=== PATIENT | female | born 1960 | race African-American/Black ===

== ENCOUNTER 2021-11-16 07:50 | Emergency (ER) | payer OTHER, SELFPAY ==
[2021-11-16 08:14] LABS: Hematocrit 37.5 % (36.0-45.0); Lymphocytes % 24.7 % (15.3-44.8); MPV 9.1 fL (7.6-11.3); RBC Red Blood Cell Count 4.11 M/uL (3.86-4.86)
[2021-11-16 08:40] LABS: Albumin 3.5 g/dL (3.4-5.0); Bilirubin Direct 0.1 mg/dL (0-0.2); Bilirubin Total 0.4 mg/dL (0.2-1.0); Magnesium 1.9 mg/dL (1.8-2.4); Potassium 3.9 mmol/L (3.5-5.1); Troponin High Sensitivity 7.5 pg/mL (<58.9)
--- NOTE | 2021-11-16 09:32 | RAD REPORT ---
EXAM DESCRIPTION: RAD - Chest Single View - 11/16/2021 8:34 am CLINICAL HISTORY: CHEST PAIN Chest pain. COMPARISON: No comparisons FINDINGS: Portable technique limits examination quality. The lungs are grossly clear. The heart is upper limit normal in size. No displaced fractures.Multi le ad pacer/defibrillator device is present. IMPRESSION: No acute intrathoracic process suspected.
[2021-11-16] MEDS ORDERED: ACETAMINOPHEN 500 MG TAB ONE (10:07)
--- NOTE | 2021-11-16 10:09 | ER ---
Nurse's Notes [facility] Name: Antonietta Sena Age: 61 yrs Sex: Female : 1960 Arrival Date: 11/16/2021 Time: 07:55 Bed 5 Private MD: Diagnosis: Chest pain, unspecified;Hypertension, History of CVA, History of CAD Presentation: 11/16 08:10 Chief complaint: Patient states: Palpitations and chest pressure awoke her out of sleep ll1 this morning. EMS states: VSS. Aspirin 324 mg PO, 2 nitro sprays, and zofran 4mg IV given en route. Coronavirus screen: Vaccine status: Patient reports receiving the 2nd dose of the covid vaccine. Client denies travel out of the [place] in the last 14 days. At this time, the client does not indicate any symptoms associated with coronavirus-19. Ebola Screen: Patient denies travel to an Ebola-affected area in the 21 days before illness onset. Initial Sepsis Screen: Does the patient meet any 2 criteria? No. Patient's initial sepsis screen is negative. Does the patient have a suspected source of infection? No. Patient's initial sepsis screen is negative. Risk Assessment: Do you want to hurt yourself or someone else? Patient reports no desire to harm self or others. Onset of symptoms was November 16, 2021. 08:10 Method Of Arrival: EMS: [facility] ll1 08:10 Acuity: DESTINY 3 ll1 Triage Assessment: 08:12 General: Appears in no apparent distress. Behavior is calm, cooperative, appropriate ll1 for age. Pain: Complains of pain in chest Quality of pain is described as pressure. Neuro: No deficits noted. Cardiovascular: Reports chest pain, palpitations, Heart tones S1 S2 Capillary refill < 3 seconds JVD Patient's skin is warm and dry. Rhythm is regular. Respiratory: No deficits noted. GI: Abdomen is round Reports nausea. Historical: - Allergies: 08:09 PENICILLINS; ll1 - PMHx: 08:09 Hypertensive disorder; Congestive heart failure; stroke; ll1 - PSHx: 08:09 pacemaker/defib; ll1 - Immunization history:: Client reports receiving the 2nd dose of the Covid vaccine. - Social history:: Smoking status: Patient denies any tobacco usage or history of. Screenin:40 Abuse screen: Denies threats or abuse. Nutritional screening: No deficits noted. ll1 Tuberculosis screening: No symptoms or risk factors identified. Fall Risk IV access (20 points). Total Fu Fall Scale indicates No Risk (0-24 pts). Assessment: 09:10 Reassessment: No changes from previously documented assessment. Patient and/or family ll1 updated on plan of care and expected duration. Pain level reassessed. Patient is alert, oriented x 3, equal unlabored respirations, skin warm/dry/pink. 09:55 Reassessment: No changes from previously documented assessment. Patient and/or family ll1 updated on plan of care and expected duration. Pain level reassessed. Patient is alert, oriented x 3, equal unlabored respirations, skin warm/dry/pink. states she will be admitted. Dr. Jj informed. Vital Signs: 08:10 BP 140 / 71; Pulse 66; Resp 17; Temp 98.1; Pulse Ox 97% on R/A; Weight 117.93 kg; ll1 Height 6 ft. 0 in. (182.88 cm); Pain 5/10; 08:41 BP 128 / 75; Pulse 63; Resp 16; Pulse Ox 97% on R/A; ll1 09:54 BP 145 / 76; Pulse 66; Resp 16; Pulse Ox 100% on R/A; ll1 08:10 Body Mass Index 35.26 (117.93 kg, 182.88 cm) ll1 ED Course: 07:55 Patient arrived in ED. eb 07:55 Armando Jj DO is Attending Physician. eb 07:59 Norma Carmichael, RN is Primary Nurse. ll1 08:09 Arm band placed on. ll1 08:12 Triage completed. ll1 08:13 Maintain EMS IV. Dressing intact. Good blood return noted. Site clean \T\ dry. Gauge \T\ ll 1 site: 20 G L FA. Patient maintains SpO2 saturation greater than 95% on room air. 08:34 XRAY Chest (1 view) In Process Unspecified. EDMS 08:40 Patient has correct armband on for positive identification. Bed in low position. Call ll1 light in reach. Side rails up X 1. pvc monitor on. Pulse ox on. NIBP on. 10:07 Tiburcio Dimas MD is Hospitalizing Provider. ms3 10:43 No provider procedures requiring assistance completed. colin 10:43 IV discontinued, intact, Pressure dressing applied. colin Administered Medications: 10:02 Not Given (given PTAa): Aspirin 325 mg PO once ph 10:08 Drug: Tylenol 1000 mg Route: PO; ll1 10:32 Follow up: Response: No adverse reaction ll1 Outcome: 10:09 Decision to Hospitalize by Provider. ms3 10:34 Discharge ordered by MD. ms3 10:43 Discharged to home colin 10:43 Discharged to home with family. 10:43 Condition: good 10:43 Discharge instructions given to patient, family. 10:43 Patient left the ED. colin Signatures: Dispatcher [employer] EDMS Lida Mike Lynsay, RN RN [facility] Armando Jj DO DO ms3 Haritha Orozco RN RN Silvia Cardoso RN
--- NOTE | 2021-11-16 10:10 | EDPHYS ---
Physician Documentation [facility] Name: Antonietta Sena Age: 61 yrs Sex: Female : 1960 Arrival Date: 11/16/2021 Time: 07:55 Bed 5 Private MD: ED Physician Armando Jj HPI: 11/16 07:58 This 61 yrs old Black Female presents to ER via Unassigned with complaints of chest ms3 pain. 07:58 The patient or guardian reports chest pain that is located primarily in the substernal ms3 area. Onset: 4 hour(s) ago. The pain does not radiate. Associated signs and symptoms: Pertinent positives: nausea, Pertinent negatives: cough, diaphoresis, dizziness, headache, vomiting. The chest pain is described as tightness. Modifying factors: The symptoms are alleviated by NTG, X2. the symptoms are aggravated by nothing. 08:07 61-year-old female with past medical history of congestive heart failure, CVA, ms3 hypertension presents via EMS for chest tightness that began at 4 AM. Patient states she is having moderate chest tightness. Patient states pain became better after 2 sublingual nitroglycerin. Patient denies alleviating factors. Patient endorses diarrhea and nausea. Patient denies shortness of breath, diaphoresis. Historical: - Allergies: 08:09 PENICILLINS; ll1 - PMHx: 08:09 Hypertensive disorder; Congestive heart failure; stroke; ll1 - PSHx: 08:09 pacemaker/defib; ll1 - Immunization history:: Client reports receiving the 2nd dose of the Covid vaccine. - Social history:: Smoking status: Patient denies any tobacco usage or history of. ROS: 08:07 Constitutional: Negative for fever, and chills. Eyes: Negative for injury, pain, ms3 redness, and discharge, ENT: Negative for injury, pain, and discharge, Neck: Negative for injury, pain, and swelling, Respiratory: Negative for shortness of breath, cough, wheezing, and pleuritic chest pain. 08:07 Skin: Negative for injury, rash, and discoloration, Neuro: Negative for headache, weakness, numbness, tingling. Psych: Negative for depression, anxiety, suicide ideation, homicidal ideation, and hallucinations. 08:07 Abdomen/GI: Positive for nausea. Exam: 08:09 Constitutional: This is a well developed, well nourished patient who is awake, alert, ms3 and in no acute distress. Head/Face: Normocephalic, atraumatic. Eyes: Pupils equal round and reactive to light, extra-ocular motions intact. Lids and lashes normal. Conjunctiva and sclera are non-icteric and not injected. Cornea within normal limits. Periorbital areas with no swelling, redness, or edema. Neck: Trachea midline, no cervical lymphadenopathy. Supple, full range of motion without nuchal rigidity, or vertebral point tenderness. No Meningismus. Chest/axilla: Normal chest wall appearance and motion. Nontender with no deformity. Cardiovascular: Regular rate and rhythm with a normal S1 and S2. No gallops, murmurs, or rubs. Normal PMI, no JVD. No pulse deficits. Respiratory: Lungs have equal breath sounds bilaterally, clear to auscultation and percussion. No rales, rhonchi or wheezes noted. No increased work of breathing, no retractions or nasal flaring. Abdomen/GI: Soft, non-tender, with normal bowel sounds. No distension or tympany. No guarding or rebound. No evidence of tenderness throughout. 08:12 ECG was reviewed by the Attending Physician. ms3 Vital Signs: 08:10 BP 140 / 71; Pulse 66; Resp 17; Temp 98.1; Pulse Ox 97% on R/A; Weight 117.93 kg; ll1 Height 6 ft. 0 in. (182.88 cm); Pain 5/10; 08:41 BP 128 / 75; Pulse 63; Resp 16; Pulse Ox 97% on R/A; ll1 09:54 BP 145 / 76; Pulse 66; Resp 16; Pulse Ox 100% on R/A; ll1 08:10 Body Mass Index 35.26 (117.93 kg, 182.88 cm) ll1 MDM: 07:57 Patient medically screened. ms3 08:10 Differential diagnosis: abnormal EKG, acute myocardial infarction, congestive heart ms3 failure stable angina. 08:10 Data reviewed: vital signs. Data interpreted: in house cra: rate is 82 beats/min, ms3 rhythm is normal sinus rhythm, Interpretation: normal rate, normal rhythm. 10:36 HEART Score: History: Slightly Suspicious (0), ECG: Normal (0), Age: > 45 and < 65 ms3 years (1), Risk Factors: > or = 3 Risk factors for atherosclerotic disease (2), Troponin: < or = 1 x Normal Limit (0), Total Score = 3. ED course: Discussed labs, EKG, chest x-ray, physical exam findings with patient. Discussed observation with patient and initially patient placed in observation. Patient then notified me she would like to be discharged. Patient states her symptoms have improved. Patient to follow-up with her primary care physician within 48 hours. Patient understands and agrees with plan. Return precautions discussed including worsening symptoms, shortness of breath, chest pain, weakness, nausea, diaphoresis or any other concerns. On reevaluation patient is alert and oriented x4, in no apparent distress, nontoxic, ambulatory in emergency department.. 10:36 Counseling: I had a detailed discussion with the patient and/or guardian regarding: the ms3 historical points, exam findings, and any diagnostic results supporting the discharge/admit diagnosis, lab results, radiology results, to return to the emergency department if symptoms worsen or persist or if there are any questions or concerns that arise at home. 10:36 Special discussion:. ms3 11/16 08:01 Order name: Basic Metabolic Panel 3 11/16 08:01 Order name: CBC with Diff; Complete Time: 09:35 3 11/16 08:01 Order name: LFT's; Complete Time: 09:35 11/16 08:01 Order name: Magnesium; Complete Time: 09:35 ms3 11/16 08:01 Order name: NT PRO-BNP; Complete Time: 09:35 ms3 11/16 08:01 Order name: Troponin HS; Complete Time: 09:35 ms3 11/16 08:01 Order name: XRAY Chest (1 view); Complete Time: 09:35 ms3 11/16 08:02 Order name: Basic Metabolic Panel; Complete Time: 09:35 EDMS 11/16 09:50 Order name: SARS-COV-2 RT PCR 11/16 07:57 Order name: O2 Per Protocol; Complete Time: 07:59 11/16 07:57 Order name: O2 Sat Monitoring; Complete Time: 07:59 ms11/16 08:01 Order name: EKG; Complete Time: 08:02 11/16 08:01 Order name: Cardiac monitoring; Complete Time: 08:03 ms3 11/16 08:01 Order name: EKG - Nurse/Tech; Complete Time: 08:03 ms3 11/16 08:01 Order name: IV Saline Lock; Complete Time: 08:03 ms3 11/16 08:01 Order name: Labs collected and sent; Complete Time: 08:03 ms3 EC:12 Rate is 64 beats/min. Rhythm is regular. CO interval is prolonged. QRS interval is ms3 normal. Clinical impression: NSR w/ Non-specific ST/T Changes. Interpreted by me. Administered Medications: 10:02 Not Given (given PTAa): Aspirin 325 mg PO once ph 10:08 Drug: Tylenol 1000 mg Route: PO; ll1 10:32 Follow up: Response: No adverse reaction ll1 Disposition Summary: 11/16/21 10:34 Discharge Ordered Location: Home(11/16/21 10:34) ms3 Condition: Stable(11/16/21 10:34) ms3 Problem: new(11/16/21 10:35) ms3 Symptoms: have improved(11/16/21 10:35) ms3 Diagnosis - Chest pain, unspecified(11/16/21 10:34) ms3 - Hypertension, History of CVA, History of CAD ms3 Followup: ms3 - With: Private Physician - When: 48 Hours - Reason: Re-evaluation by your physician Discharge Instructions: - Discharge Summary Sheet ms3 - Nonspecific Chest Pain, Adult ms3 Forms: - Medication Reconciliation Form ms3 - Thank You Letter ms3 - Antibiotic Education ms3 - Prescription Opioid Use ms3 Signatures: Dispatcher [employer] EDMS Norma Carmichael, RN RN ll1 Armando Jj DO DO ms3 Silvia Cardoso RN ph Corrections: (The following items were deleted from the chart) 08:01 07:58 Protime (+INR) ordered. EDMS EDMS 09:48 09:40 SARS-COV-2 RT PCR+[id number].BRZ ordered. EDMS EDMS 10:33 10:09 Observation ms3 ms3 10:33 10:09 Tiburcio Dimas ms3 ms3 10:33 10:09 Telemetry/MedSurg (observation) ms3 ms3 10:33 10:09 Stable ms3 ms3 10:33 10:09 new ms3 ms3 10: 10:09 are unchanged ms3 ms3 10: 10:09 Standard ms3 ms3 : 10: ms3 ms3 : 10:09 Chest pain, unspecified ms3 ms3 10: 10:09 Leukopenia, History of Cardiac Arrest, History of CAD, History of CHF, History of ms3 HTN ms3
[2021-11-16 10:48] VITALS: TEMP 98.1
[2021-11-16 10:51] VITALS: BP 145/76; O2SAT 100
== END 2021-11-16 10:43 | disposition home or self-care (01) ==
LOC: ER 07:50
DX: R07.9 Chest pain, unspecified (principal); I10 Essential (primary) hypertension; I25.10 Atherosclerotic heart disease of native coronary artery without angina pectoris; Z86.73 Personal history of transient ischemic attack (TIA), and cerebral infarction without residual deficits; I50.9 Heart failure, unspecified; Z88.0 Allergy status to penicillin; Z95.810 Presence of automatic (implantable) cardiac defibrillator; Z20.822 Contact with and (suspected) exposure to COVID-19
CPT/HCPCS: 93005; 85025; 80048; 36415; 83735; 80076; 84484; 83880; 71045; 99285; U0003